=== PATIENT | female | born 1990 | race Two or more races ===

== ENCOUNTER 2016-12-12 10:58 | Emergency (ER) | payer MEDICAID ==
--- NOTE | 2016-12-12 11:52 | OBHP ---
Datetime: 12/12/2016 11:44 IP Adm Impression: , intrauterine ; No Active Labor IP Admit Plan: Observation/Evaluation; Discharge home Admit Comment, IP Provider: 26yo with IUP at 34wks reports here today for evaluation. [place] the [place] ago and checks in today for evaluation. She denies any VB or LOF and feels good movements. Pt repors she has scheduled a first care visitwith Dr Jones in 3 days. TOCO- none, FHR- Category 1 , Pelvic exam: Pt refuses. Assessment: IUP at 34wks NST Reactive. Plan: D/C home. F/U with Dr Jones on Wednesday. Questions from Patient answered. Pelvic Type - PN: Adequate Extremities - PN: Normal Abdomen - PN: Normal Back - PN: Normal Breast - PN: Normal Lungs - PN: Normal Heart - PN: Normal Thyroid - PN: Normal Neurologic - PN: Normal HEENT - PN: Normal General - PN: Normal Presentation-Admit: Vertex FHR - Baseline A Provider: 140 Comments, ACOG Physical Exam: Abd: Soft,NT, BS- present Gestation - Est Wks by US: 34.0 Vital Signs Provider: Reviewed IP Chief Complaint: evaluation NICHD Variability Prov Fetus A: Moderate 6-25bpm NICHD Accel Fetus A IP Provider: 15X15 FHR Category Provider Fetus A: Category I NICHD Decel Fetus A IP Provider: None Genitourinary Exam: Normal DTRs - PN: Normal
[2016-12-12 17:02] VITALS: BP 116/73; PULSE 104; RESP 18; TEMP 98.8; O2SAT 97
== END 2016-12-12 12:30 | disposition home or self-care (01) ==
LOC: C.EROB 10:58
DX: O26.893 Other specified pregnancy related conditions, third trimester (principal); Z3A.34 34 weeks gestation of pregnancy

== ENCOUNTER 2017-01-05 17:08 | Emergency (ER) | payer MEDICAID, OTHER ==
[2017-01-05 22:33] VITALS: BP 120/71; PULSE 86; RESP 18; TEMP 97.5
== END 2017-01-05 17:55 | disposition home or self-care (01) ==
LOC: C.EROB 17:08
DX: Z36 Encounter for antenatal screening of mother (principal); Z3A.38 38 weeks gestation of pregnancy

== ENCOUNTER 2017-01-15 07:00 | Inpatient (IN) | payer OTHER ==
--- NOTE | 2017-01-15 07:13 | OBADHP ---
Datetime: 01/15/2017 07:09 Admit Comment, IP Provider: at 39+weeks rom at 6.30 am with lof with oct ctxs, novb,+fm. obhx primi pmh den med pnv all nkda psh denie soch den sse +pooling,+nitrazine ve 1-2/70/-2 a/p at 39+weeks prom admit tol_d pitocin npo/ivf labs pain managem pitocin cont nahum and efm anticipte Pelvic Type - PN: Adequate Extremities - PN: Normal Abdomen - PN: Normal Back - PN: Normal Breast - PN: Not Done Lungs - PN: Normal Heart - PN: Normal Thyroid - PN: Not Done Neurologic - PN: Normal HEENT - PN: Normal General - PN: Normal FHR - Baseline A Provider: 130 Membranes, Provider: Ruptured Contraction Comments Provider: q1-4 Comments, ACOG Physical Exam: gravid,non tender ext no edema,no calf tem sse +pooling,+nitrazine IP Hx Assessment: The History has been Reviewed and is Current Vital Signs Provider: Reviewed; Within Normal Limits IP Chief Complaint: Suspected ruptured membranes NICHD Variability Prov Fetus A: Moderate 6-25bpm NICHD Accel Fetus A IP Provider: 15X15 FHR Category Provider Fetus A: Category I NICHD Decel Fetus A IP Provider: None Effacement, Provider: 70 Station, Provider: -1 Genitourinary Exam: Normal DTRs - PN: Normal EGA AdmitDate IP: 39.4 IP Adm Impression: Term, intrauterine ; Ruptured Membranes IP Admit Plan: Admit to unit; Initiate labor protocol Datetime: 01/05/2017 17:31 IP Chief Complaint Other: NST Datetime: 12/12/2016 11:44 Presentation-Admit: Vertex Gestation - Est Wks by US: 34.0
[2017-01-15 07:15] VITALS: BMI 29.7
[2017-01-15] MEDS ORDERED: Oxytocin 30 UNIT 30 UNITS/500 ML BAG IV PRN (07:17)
[2017-01-15] MEDS ORDERED: Nalbuphine 20 mg/ml Inj (1 ml) IVP PRN (07:30)
[2017-01-15] MEDS: Lactated Ringer's 1,000 ML IV SCH ×2 (07:45→18:44)
[2017-01-15] MEDS ORDERED: Oxytocin 30 UNIT 30 UNITS/500 ML BAG IV ONE (08:10)
[2017-01-15 08:41] LABS: BASO % 0.2 % (0.0-2.0); EOS % 0.8 % (0.0-4.0); HEMATOCRIT 36.7 % (34.0-47.0); LYMPH # 1.8 K/uL (1.0-4.3); LYMPH % 31.7 % (20.0-40.0); MEAN CELL VOLUME 85.6 fL (81.0-99.0); MEAN CORPUSCULAR HEMOGLOBIN 29.4 pg (27.0-31.0); MEAN CORPUSCULAR HGB CONC 34.3 g/dL (33.0-37.0); MEAN PLATELET VOLUME 8.6 fL (7.2-11.7); MONO # 0.4 K/uL (0.0-0.8); MONO % 6.7 % (0.0-10.0); RED CELL DISTRIBUTION WIDTH 13.5 % (11.5-14.5); WHITE BLOOD COUNT 5.7 K/uL (4.8-10.8)
[2017-01-15 08:49] LABS: CHLORIDE 106 mmol/L (98-107); SODIUM 135 mmol/L (132-148)
[2017-01-15 08:50] LABS: POTASSIUM 3.9 mmol/L (3.6-5.2)
[2017-01-15 08:52] LABS: ALB/GLOB RATIO 1.2 (1.0-2.1); ALKALINE PHOSPHATASE 174 U/L (38-126); ALT/SGPT 34 U/L (9-52); AST/SGOT 15 U/L (14-36); BILIRUBIN,TOTAL 0.4 mg/dL (0.2-1.3); BLOOD UREA NITROGEN 10 mg/dL (7-17); CALCIUM 8.8 mg/dl (8.6-10.4); CARBON DIOXIDE 20 mmol/L (22-30); GFR AFRICAN-AMERICAN > 60; GLUCOSE,RANDOM 83 mg/dL (65-105); TOTAL PROTEIN 6.5 g/dL (6.3-8.3)
[2017-01-15 09:14] LABS: URINE BILIRUBIN NEGATIVE (NEGATIVE); URINE BLOOD 1+ (NEGATIVE); URINE COLOR Yellow (YELLOW); URINE GLUCOSE (UA) NORMAL (Normal); URINE HYALINE CAST 0-2 /lpf (0-2); URINE KETONE NEGATIVE (NEGATIVE); URINE LEUKOCYTE ESTERASE NEG Leu/uL (Negative); URINE PROTEIN 2+ mg/dL (NEGATIVE); URINE UROBILINOGEN NORMAL mg/dL (0.2-1.0)
[2017-01-15] MEDS ORDERED: Bupivacaine 0.125%/FentaNYL 200 ML EPI ONE (09:15)
[2017-01-15] MEDS ORDERED: Bupivacaine HCl 0.25% PF (10 ml) Inj ONE ×2 (09:15→18:16)
[2017-01-15 09:17] LABS: RBC URINE 5 /hpf (0-3)
[2017-01-15 09:18] LABS: URINE BACTERIA MOD (<OCC); WBC URINE 4 /hpf (0-5)
--- NOTE | 2017-01-15 10:54 | OBPN ---
Datetime: 01/15/2017 10:50 IP Progress Impression: Normal progression of labor IP Procedures: Sterile Vag Exam Contraction Comments Provider: q1-4 FHR - Baseline A Provider: 130 IP Progress Note Comment: pt was examined at bed side ve 3/80/-1 cont pitocin anticipate Vital Signs Provider: Reviewed; Within Normal Limits NICHD Accel Fetus A IP Provider: 15X15 FHR Category Provider Fetus A: Category I NICHD Variability Prov Fetus A: Moderate 6-25bpm Dilatation, Provider: 3 Effacement, Provider: 80 Station, Provider: -1 NICHD Decel Fetus A IP Provider: None Datetime: 01/15/2017 07:09 IP Informed Consent Obtain: Vaginal Delivery Membranes, Provider: Ruptured Datetime: 12/12/2016 11:44 Gestation - Est Wks by US: 34.0 Presentation-Admit: Vertex
--- NOTE | 2017-01-15 15:05 | OBPN ---
Datetime: 01/15/2017 15:03 IP Progress Impression: Normal progression of labor IP Procedures: Sterile Vag Exam FHR - Baseline A Provider: 130 IP Progress Note Comment: pt was seen at bed side ve 8/100/0 cont pitocin anticipate Vital Signs Provider: Reviewed; Within Normal Limits NICHD Accel Fetus A IP Provider: 15X15 FHR Category Provider Fetus A: Category I NICHD Variability Prov Fetus A: Moderate 6-25bpm Dilatation, Provider: 8 Effacement, Provider: 100 Station, Provider: 0 NICHD Decel Fetus A IP Provider: None
[2017-01-15] MEDS ORDERED: Oxycodone/Acetaminophen 5/325 mg Tab PO PRN (16:28)
[2017-01-15] MEDS ORDERED: Benzocaine/Menthol 20%-0.5% Topical Spray (60 ml) TOP PRN (16:28)
[2017-01-15] MEDS ORDERED: Lidocaine 2% Inj (20ml) ONE (17:57)
[2017-01-15] MEDS ORDERED: Sodium Citrate/Citric Acid 15 ml Sol PO ONE (18:12)
[2017-01-15] MEDS ORDERED: Lidocaine 2% MPF (5 ml) Inj ONE ×2 (18:14→18:51)
[2017-01-15] MEDS ORDERED: cefOXitin IV 2 gm in Dextrose 2 GM/50 ML BAG IVPB ONE (18:17)
[2017-01-15] MEDS ORDERED: Oxytocin 10 Units/ml Inj ONE (18:32)
[2017-01-15 19:00] LABS: BASO % 0.2 % (0.0-2.0); EOS % 0.1 % (0.0-4.0); HEMATOCRIT 34.4 % (34.0-47.0); LYMPH # 1.5 K/uL (1.0-4.3); LYMPH % 12.8 % (20.0-40.0); MEAN CELL VOLUME 86.1 fL (81.0-99.0); MEAN CORPUSCULAR HEMOGLOBIN 29.1 pg (27.0-31.0); MEAN CORPUSCULAR HGB CONC 33.8 g/dL (33.0-37.0); MEAN PLATELET VOLUME 8.7 fL (7.2-11.7); MONO # 0.7 K/uL (0.0-0.8); MONO % 6.3 % (0.0-10.0); RED CELL DISTRIBUTION WIDTH 13.4 % (11.5-14.5)
[2017-01-15] MEDS ORDERED: Morphine 1 mg/ml preservative-free Inj(Duramorph) ONE (19:04)
[2017-01-15 19:05] LABS: WHITE BLOOD COUNT 11.3 K/uL (4.8-10.8)
[2017-01-15] MEDS ORDERED: Midazolam 2 MG/2 ML VIAL ONE (19:29)
--- NOTE | 2017-01-15 19:46 | PCM.SURG1 ---
Surgeon's Initial Post Op Note - Surgeon's Notes Surgeon: dr vega Marketing Systems Manager: dr ling/dr cage Type of Anesthesia: Other (epidural) Anesthesia Administered By: dr howard Pre-Operative Diagnosis: 26yr at 39weeks arrrest of descent/pph Operative Findings: see the op report Post-Operative Diagnosis: same with laceration in the vagina/post hemmarge Operation Performed: primary section/repair of perineal laceration Specimen/Specimens Removed: cord gas. cord blood Estimated Blood Loss: EBL {In ML}: 1,500 Blood Products Given: N/A Drains Used: No Drains Post-Op Condition: Good Date of Surgery/Procedure: 01/15/17 Time of Surgery/Procedure: 20:20
--- NOTE | 2017-01-15 19:53 | OBDS ---
MATERNAL INFORMATION Provider Comments: baby deliverd in dop pos. end clean no com. laceration repaired. uterine atony. cytpotec [id number] mc/metherginn/hemabate/piocin 40 units given repeat cbc in am LABOR SUMMARY EDC: 01/18/2017 00:00 MEMBRANES Membranes Rupture Method: Spontaneous Rupture of Membranes: 01/15/2017 06:15 Length of Rupture (hrs): 12.78 Amniotic Fluid Color: Clear Amniotic Fluid Amount: Moderate Amniotic Fluid Odor: Normal STAGES OF LABOR Stage 3 hrs: 0 Stage 3 min: 1 VAGINAL DELIVERY Episiotomy: None Laceration Extension: Second Degree Laceration Type: Perineal Laceration Repair Note: repaired with 2 vicry and 3 chromic BABY A INFORMATION Delivery Date/Time: 01/15/2017 19:02 Method of Delivery: Born in Route : No : N/A Forceps: N/A Vacuum Extraction: N/A Shoulder Dystocia : No SHOULDER DYSTOCIA BABY A Infant Delivery Date/Time: 01/15/2017 19:02 PRESENTATION/POSITION BABY A Presentation: Cephalic Cephalic Presentation: Vertex Vertex Position: Right Occipital Posterior Breech Presentation: N/A PLACENTA INFORMATION BABY A Placenta Delivery Time : 01/15/2017 19:03 Placenta Method of Delivery: Manual Removal Placenta Status: Delivered SCORES BABY A Heart Rate 1 min: >100 bpm Resp Effort 1 min: Good Cry Reflex Irritability 1 min: Cough or Sneeze or Pulls Away Muscle Tone 1 min: Active Motion Color 1 min: Body [place], Extremities Blue Resuscitation Effort 1 min: Tactile Stimulation SCORE 1 MIN: 9 Heart Rate 5 min: >100 bpm Resp Effort 5 min: Good Cry Reflex Irritability 5 min: Cough or Sneeze or Pulls Away Muscle Tone 5 min: Active Motion Color 5 min: Body [place], Extremities Blue Resuscitation Effort 5 min: N/A SCORE 5 MIN: 9 INFORMATION BABY A Gestational Age at Delivery: 38.4 Gestational Status: Term Infant Outcome : Liveborn Condition : Stable Sex: Male IDENTIFICATION/MEDS BABY A ID Band Number: [id number] Sensor Number: [id number] WEIGHT/LENGTH BABY A Infant Birthweight (gms): 2920 Infant Weight (lb): 6 Weight (oz): 7 Length Inches: 19.50 Length cms: 49.5 CORD INFORMATION BABY A No. Cord Vessels: 3 Nuchal Cord : N/A Infant Suction: Mouth; Nose ASSESSMENT BABY A Complications: None Physical Findings at Delivery: Within Normal Limits Infant Respirations: Appears Normal [employer]/ALS Called : No Infant Care By: Tameka Cortés Transferred To: Remains with Mother
[2017-01-16] MEDS: Oxycodone/Acetaminophen 5/325 mg Tab PO PRN ×3 (05:38→16:23)
[2017-01-16 08:16] LABS: BASO % 0.2 % (0.0-2.0); EOS % 0.1 % (0.0-4.0); HEMATOCRIT 27.2 % (34.0-47.0); LYMPH # 1.8 K/uL (1.0-4.3); MEAN CELL VOLUME 85.9 fL (81.0-99.0); MEAN CORPUSCULAR HEMOGLOBIN 29.5 pg (27.0-31.0); MEAN CORPUSCULAR HGB CONC 34.4 g/dL (33.0-37.0); MEAN PLATELET VOLUME 8.5 fL (7.2-11.7); MONO # 0.6 K/uL (0.0-0.8); RED CELL DISTRIBUTION WIDTH 13.4 % (11.5-14.5); WHITE BLOOD COUNT 10.7 K/uL (4.8-10.8)
[2017-01-16] MEDS ORDERED: Bisacodyl 5mg EC Tab PO ONE (19:47)
[2017-01-17] MEDS: Oxycodone/Acetaminophen 5/325 mg Tab PO PRN ×2 (05:24→12:43)
[2017-01-17 08:31] VITALS: O2SAT 98
--- NOTE | 2017-01-17 17:51 | OBPPN ---
Datetime: 01/17/2017 08:39 PP Heart Prov: Normal PP Lungs Prov: Normal PP Abdomen/Uterus Prov: Normal PP Lochia Prov: Normal PP C/S Incision Prov: Normal PP Progress Prov: Normal PP Comments Phys Exam Prov: Fundus is firm and below the umbilicus PP Impression Prov: Normal progression PP Plan Prov: Continue present management PP Progress Note Prov: Patient was seen and examined at bedside. As per nursing, patient had no acut e issues overnight. Patient reports that she is doing well and her pain is well-controlled. Patient reports mild lochia. Patient is ambulating, tolerating diet, urinating without difficulty and passing flatus. Patient denies chest pain, palpitations, nausea, vomitinng, calf tenderness. Patient is br east feeding. Vital Signs: BP: 96/63, HR: 92, Temp: 97.5 Labs: 5.7>12.6/36.7<236, 11.3>11.6/34.4<217( prior to ), 10.7>9.4/27.2<197 B+. Rubella immune Physical examination: GEN: NAD, AAOx3 Cardio: RRR, Normal S1, S2 Pulm: CTA bilaterally Abdomen: Soft, appropriately tender, fundus is firm and below the umbilicus. Incision is clean, dr y and angela intact Ext: No edema, no clubbing and no cyanosis A/P: 26 yo at 39 weeks s/p primary lower transverse caesarean delivery 2/2 failed TERRI with PPH , POD#2 1. Stable, Afebrile 2. Pain control: continue percocet, motrin as needed 3. Ferrous Sulfate 325mg PO BID and colace 100mg PO BID 4. Encourage breast feeding/ ISS use 5. Encourage hydration and ambulation 6. Continue routine care 7. Male infant, desiring circumcision 8. Plan d/w attending Raghu Andre DO, PGY-1 This Pt was seen and examined with the resident and I agree with the above. Datetime: 01/16/2017 08:42 PP Pain Prov: Within normal limits PP Nausea Prov: Denies PP Flatus Prov: No PP BM Prov: No PP Vulva/Perineum Prov: Normal
[2017-01-18] MEDS ORDERED: Magnesium Hydroxide Susp 30 ml UD PO ONE (00:02)
--- NOTE | 2017-01-18 07:37 | OBPPN ---
Datetime: 01/18/2017 07:35 PP Pain Prov: Within normal limits PP Nausea Prov: Denies PP Flatus Prov: Yes PP BM Prov: Yes PP Abdomen/Uterus Prov: Normal PP Lochia Prov: Normal PP Extremities Prov: Normal PP C/S Incision Prov: Normal PP Comments Phys Exam Prov: fudus below umblicus ext mild [place],no calf ten incision clean and dry PP Impression Prov: Normal progression PP Plan Prov: Discharge PP Progress Note Prov: pt was seen at bed side, pain under control,no n/v, tolerating deit, voiding, min lochia, flatus+ pod#3 s/p c/s dc home no sex percocet prn f/u in clinic on for angela removal Vital Signs Provider PP: Reviewed; Within Normal Limits
--- NOTE | 2017-01-18 07:40 | OBDCSUM ---
Datetime: 01/18/2017 07:38 Discharged to, Provider: Home Follow up at, Provider: Discharge Diagnosis, Provider: Term Delivered Follow up in weeks, Provider: clinc Disch Activity Restrictions: Nothing in vagina - [place], tampons, douche Discharge Comment, Provider: wa home no sex percocet prn f/u in clinic on for angela removal Discharge Diagnosis Prov Other: s/p primary c/s
--- NOTE | 2017-01-19 03:41 | OP ---
PREOPERATIVE DIAGNOSIS: A 26 years old 1, para 0 at 39 weeks premature rupture of membranes, arrest of descent. POSTOPERATIVE DIAGNOSIS: A 26 years old 1, para 0 at 39 weeks premature rupture of membranes, arrest of descent with vaginal laceration during the pushing with direct occipitoposterior position. TYPE OF ANESTHESIA: Epidural. ANESTHESIA ADMINISTERED BY: Dr. Nino. COMPLICATIONS: None. ESTIMATED BLOOD LOSS: 1500 mL. DESCRIPTION OF PROCEDURE: After informed consent was obtained, the patient was brought to the operating room, placed on the table where epidural anesthesia was given. When anesthesia was found to be sufficient, she was prepped and draped in normal sterile fashion. About 2 cm above the pubic bone, a skin incision was made with a knife, the subcutaneous cut with a Bovie. The fascia was then excised on both the sides using curved Ramirez scissors. The fascia was first from the site of the umbilicus and then at the site of the rectal muscles. The rectal muscle was , the peritoneum was incised and we went to the abdominal cavity. Bladder blade was placed. Bladder flap was created and then the bladder was released. Lower uterine segment incision was made with a knife and it was nibbled using Ramirez scissors. Baby delivered in a CHAU direct occipitoposterior position. Cord was clamped and cut. Cord gas was sent. Placenta delivered manually and sent to the pathology. Uterus was very gave Hemabate. We gave her Methergine. We gave her extra Pitocin. Lot of massage was done and it was better and then the uterus incision was closed with #1 Vicryl interlocking fashion, second layer was closed with the same stitch. Cul-de-sac was cleared of all the clots and debris. Uterus was returned back to abdominal cavity. It was hemostatic. Peritoneum was closed using 2-0 Vicryl in running interlocking fashion. Muscle was closed using 2-0 Vicryl in running interlocking fashion. Fascia was closed #1 Vicryl interlocking fashion. Subcutaneous tissue was closed with 0-Vicryl in interrupted fashion. Skin was closed using angela. The patient tolerated the procedure well. Once we vaginal laceration, which was repaired before the . It was hemostatic. The patient tolerated the procedure well. Lap, sponge and instrument counts were correct x2. Shravan Ashley MD [facility] # [id number]
[2017-01-20 23:42] VITALS: BP 108/70; PULSE 88; RESP 18; TEMP 97.5
== END 2017-01-18 15:40 | disposition home or self-care (01) | DRG 651 ==
LOC: C.EROB 07:00 → C.4D 07:15 → C.4M 22:12
PROVIDERS: ADMIT Obstetrics & Gynecology; ATTEND Obstetrics & Gynecology
PROC: 10D00Z1 Extraction of Products of Conception, Low, Open Approach (ICD-10-PCS; principal; 2017-01-15)
PROC: 0KQM0ZZ Repair Perineum Muscle, Open Approach (ICD-10-PCS; 2017-01-15)
DX: O42.02 Full-term premature rupture of membranes, onset of labor within 24 hours of rupture (principal); O72.1 Other immediate postpartum hemorrhage; O64.0XX0 Obstructed labor due to incomplete rotation of fetal head, not applicable or unspecified; O62.1 Secondary uterine inertia; O70.1 Second degree perineal laceration during delivery; Z3A.39 39 weeks gestation of pregnancy; Z37.0 Single live birth